=== PATIENT | male | born 1950 | race Caucasian/White ===

== ENCOUNTER → 2019-10-13 | Outpatient (CLI) | payer OTHER ==
[~2019-10-13] VITALS: Ht 177.8 cm; Wt 74.8 kg
[~2019-10-13] MED LIST: ALLOPURINOL 10100 M1 PO; ALLOPURINOL 10100 M3 PO; ASPIRIN325 PO; CARVEDILOL25 MG PO; CRESTOR20 MG PO; GEMFIBROZIL 60600 M1 PO; LISINOPRIL10 MG PO; NIASPAN 500 MG500 M1 PO; PANTOPRAZOLE SO40 M1 PO; PLAVIX 75 MG TA75 MG PO; SUPER B MAXI C0.4 MG PO
--- NOTE | 2019-10-15 16:07 | PATH ---
[facility] [place] [address] PATHOLOGY RPT PROCEDURE Name: AGUSTINAANDREW KINGA Room #: REG TERE Nava.#: [id number] Admission: 10/13/19 Date of : 46 Discharge: Report #: [id number] Path Case #: [id number] [facility] Accession Number: [id number] . 01 Material submitted: . PART A: esophagus - ESOPHAGEAL BIOPSY R/O BARRETTS PART B: colon - POLYP AT SIGMOID X4. Modifiers: sigmoid . 01 Clinical history: . Reflux, positive FOB A: R/O Pardo's . 02 Diagnosis: A. 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 - Negative for dysplasia. - Squamous mucosa showing mild active esophagitis. - GMS fungal special stain pending, to be reported as an addendum. . B. Polyp at sigmoid x4, endoscopic biopsy: - Tubular adenoma x2. - Negative for high grade dysplasia. . (IUV:mml; 10/14/2019) QLM 10/14/2019 1304 Local . 02 Addendum: . This addendum is issued subsequent to reviewing a properly-controlled GMS fungal special stain performed on block A1. It shows no definite fungal elements present. . (IUV:mml; 10/15/2019) . . Professional services performed by [facility] at [facility], [address] , [place] [address]. [facility] by [facility] at [address] [place] [address], [address], [place] [address]. [facility]/10/15/2019 Addendum Electronically Signed by Britni Keys MD, Pathologist . 02 Electronically signed: . Britni Keys MD, Pathologist NPI- [id number] . 01 Gross description: . [facility] [address] [place] [address] PATHOLOGY RPT PROCEDURE Name: ANDREW BERRIOS [facility] [id number] Admission: 10/13/19 Date of : 46 Discharge: Report #: [id number] Path Case #: [id number] A. The specimen is received in formalin, labeled "Andrew Berrios, esophageal biopsy, R/O Pardo's". Received are four segments of pale waite soft tissue ranging in size from 0.3 to 0.4 cm in maximum dimensions. The specimen is submitted entirely in cassette A1. . B. The specimen is received in formalin, labeled "Andrew Agustina, polyp at sigmoid x4". Received are four segments of pale waite soft tissue ranging in size from 0.3 to 1.0 cm in maximum dimensions. The specimen is submitted entirely in cassette B1. (CAA; 10/13/2019) QAC/QAC 10/13/2019 1844 Local . 02 Pathologist provided ICD-10: K22.70, D12.5 . 02 CPT . 630705, 740966, 154629 Specimen Comment: A courtesy copy of this report has been sent to [phone] Specimen Comment: [phone] Specimen Comment: Report sent to / DR DICKSON Specimen Comment: A duplicate report has been generated due to demographic updates. Performed at: [address] [facility], [place] [id number] MD Rodríguez Noble MD Phone: [phone] Performed at: [address] [id number] MD Britni Keys MD Phone: [phone]
== END | disposition home or self-care (01) ==
LOC: GI 07:52
DX: R19.5 Other fecal abnormalities (principal); D12.5 Benign neoplasm of sigmoid colon; K64.8 Other hemorrhoids; K22.70 Barrett's esophagus without dysplasia; K21.0 Gastro-esophageal reflux disease with esophagitis; K44.9 Diaphragmatic hernia without obstruction or gangrene; I10 Essential (primary) hypertension; E78.00 Pure hypercholesterolemia, unspecified; I25.2 Old myocardial infarction; I73.9 Peripheral vascular disease, unspecified; Z95.1 Presence of aortocoronary bypass graft; Z98.41 Cataract extraction status, right eye; Z98.42 Cataract extraction status, left eye; Z88.8 Allergy status to other drugs, medicaments and biological substances; Z79.899 Other long term (current) drug therapy
CPT/HCPCS: 62110; 62900

== ENCOUNTER → 2019-11-06 | Outpatient (CLI) | payer OTHER | LOC: SJCVCIMAG 13:49 | DX: I65.23 Occlusion and stenosis of bilateral carotid arteries (principal); I25.810 Atherosclerosis of coronary artery bypass graft(s) without angina pectoris; I77.9 Disorder of arteries and arterioles, unspecified; I25.5 Ischemic cardiomyopathy; E78.00 Pure hypercholesterolemia, unspecified; I71.4 Abdominal aortic aneurysm, without rupture; I10 Essential (primary) hypertension ==

== ENCOUNTER → 2019-12-10 | Outpatient (CLI) | payer OTHER | LOC: SJCVCIMAG 07:41 | DX: I08.8 Other rheumatic multiple valve diseases (principal); I11.9 Hypertensive heart disease without heart failure; I71.4 Abdominal aortic aneurysm, without rupture; I77.9 Disorder of arteries and arterioles, unspecified; I25.5 Ischemic cardiomyopathy; R06.00 Dyspnea, unspecified; Z95.1 Presence of aortocoronary bypass graft ==

== ENCOUNTER → 2019-12-18 | Outpatient (CLI) | payer OTHER ==
[2019-12-17 07:13] VITALS: BP 121/67
[2019-12-17 07:22] LABS: HEMATOCRIT 36.7 % (42.0-52.0); HEMOGLOBIN 12.3 gm/dL (14.0-18.0); MCH 35.9 pg (26.0-34.0); MCHC 33.5 g/dL (28.0-37.0); MCV 107.2 fL (80.0-100.0); RBC 3.42 mil/uL (4.50-6.00); RDW 13.7 % (10.5-14.5); WBC 5.9 thou/uL (4.0-11.0)
[2019-12-17 07:24] LABS: CREATININE 1.7 mg/dL (0.7-1.3); POTASSIUM 4.3 mmol/L (3.5-5.1)
--- NOTE | 2019-12-17 08:11 | EKG ---
[facility] [place] [address] [place] [address] ELECTROCARDIOGRAM REPORT Name: TRAN VILLAREAL KINGA Room #: [facility]Martin [facility] Center[facility] [id number] Admission: 12/17/19 Attend Phys: Kamari Holt MD, Discharge: Date of : 46 Report #: [id number] THIS REPORT FOR: cc: Gordon Cardenas,Gordon Quintana,Van Couch MD [facility] ~ THIS REPORT FOR: //name// [facility] Test Date: 2019-12-17 Test Time: 07:03:44 Pat Name: TRAN VILLAREAL Department: Room: Gender: M Wood Calker: RAFFY : 1950 Requested By: Kamari Holt Order Number: [id number] MD: Van Workman Measurements Intervals [place] Rate: 61 P: 37 MT: 240 QRS: -27 QRSD: 114 T: 119 QT: 466 QTc: 470 Interpretive Statements Sinus rhythm Multiple ventricular premature complexes Prolonged MT interval Borderline intraventricular conduction delay Nonspecific repol abnormality, diffuse leads Compared to ECG 08/10/2016 07:11:56 Ventricular premature complex(es) now present First degree AV block now present Electronically Signed On 12-17-2019 8:10:02 CDT by Van Workman [email or web address] <ELECTRONICALLY SIGNED> By: Van Workman MD, [facility] 12/17/19809 2 2 Van Wokrman MD, [facility] /EPI
[~2019-12-18] VITALS: Ht 175.3 cm; Wt 72.6 kg
[2019-12-18 08:39] VITALS: BP 142/83
[2019-12-18 09:14] LABS: CALCIUM 8.8 mg/dL (8.5-10.1); CREATININE 1.6 mg/dL (0.7-1.3); POTASSIUM 4.1 mmol/L (3.5-5.1)
--- NOTE | 2019-12-19 17:28 | CATHLAB ---
[facility] [place] [address] [place] [address] INVASIVE PROCEDURE REPORT Name: TRAN VILLAREAL Room #: REG TERE NavaYarelis#: [id number] Admission: 12/18/19 Attend Phys: Kamari Holt MD, Discharge: Date of : 46 Report #: [id number] THIS REPORT FOR: cc: Gordon Cardenas Steven F. DO Mancuso, Gerald M. MD [facility] ~ APPROVED REPORT Study performed: 12/18/2019 09:39:07 Patient Details Patient Status: Out-Patient Room #: The patient is a 69 year-old male Event Personnel Kamari Holt Pastry Artist, Robina Qiu RN RN, Bea Euceda RTR, Dennis Knutson Roberta Monitor Procedures Performed Art Access - R femoral artery* Left Heart Cath Coronaries, Bypass Grafts 3178350 LHCCORCABG 68370 Initial Mod Sed Same Phys/QHP Gr5y 283086 83299 Mod Sed Same Phys/QHP Ea 448902 Renal Bilateral Peripheral Angiography 3401653 CVRENALBIL Hemostasis w/ Mynx Indication Chest pain Procedure Narrative The Right Groin^ was infiltrated with 1% Lidocaine subcutaneous anesthesia. A PINNACLE 6FR Sheath #[id number] sheath was inserted into the RFA 6F^. Coronary angiography was performed using coronary diagnostic catheters. The right coronary system was accessed and visualized with a JR4 catheter. The left coronary system was accessed and visualized with a JL4 catheter. The left ventricle was accessed and visualized with a STR PIG catheter. Left ventriculogram was performed in 30 degree projection. There was no hematoma. Peoples to LAD Intraoperative Conscious Sedation Sedation start time: 1016 Case end Time: 1115 Fentanyl 100 mcg Versed 2 mg [facility] [address] [place] [address] INVASIVE PROCEDURE REPORT Name: DIONNATRAN LEE [id number] Admission: 12/18/19 Attend Phys: Kamari Holt, Discharge: Date of : 46 Report #: [id number] Fluoro Time: 15.13 minutes Dose: DAP 6662.00 cGycm2 Hemodynamics The aortic pressure is 126/47 mmHg with a mean of 73 mmHg. The left ventricular pressure is 146/2 mmHg with a mean of mmHg. The left ventricular end diastolic pressure is 16 mmHg. Conclusion #1. Normal left ventricular size systolic function mildly reduced inferior basilar hypokinesis EF 50% range #2 left main long moderately calcified possibly a previous stent giving rise to an occluded circumflex and subtotaled LAD which then is occludes after the septal slot shift supervisor #3 the PEOPLES is intact is tortuous mildly diseased filling in LAD which has diffuse disease slight progression but nothing occlusive. Some filling of the diagonal system through this is noted. 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 Previously placed stent in the mid distal RCA is widely patent. 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 #7 there appears to be injection of an occluded vein graft not clear as the distribution of that graft. Recommendations and plan: Continue aggressive risk factor modification. No indication for coronary intervention. Follow-up will be scheduled follow discharge protocol. <ELECTRONICALLY SIGNED> By: Kamari Holt MD, FACC 12/19/191725 25 25 Kamari Holt MD, FACC /INF
== END | disposition home or self-care (01) ==
LOC: CATH 12-17 06:32
PROVIDERS: Internal Medicine Cardiovascular Disease
DX: R07.9 Chest pain, unspecified (principal); I25.810 Atherosclerosis of coronary artery bypass graft(s) without angina pectoris; I70.1 Atherosclerosis of renal artery; I10 Essential (primary) hypertension; I42.9 Cardiomyopathy, unspecified; I25.2 Old myocardial infarction; E03.9 Hypothyroidism, unspecified; F41.9 Anxiety disorder, unspecified; I73.9 Peripheral vascular disease, unspecified; F17.210 Nicotine dependence, cigarettes, uncomplicated; Z95.1 Presence of aortocoronary bypass graft; Z98.890 Other specified postprocedural states; Z79.899 Other long term (current) drug therapy; Z98.41 Cataract extraction status, right eye; Z98.42 Cataract extraction status, left eye; Z82.49 Family history of ischemic heart disease and other diseases of the circulatory system

== ENCOUNTER → 2020-11-05 | Outpatient (CLI) | payer OTHER | LOC: SJCVC 09:43 | PROVIDERS: ATTEND Internal Medicine Cardiovascular Disease | DX: R94.31 Abnormal electrocardiogram [ECG] [EKG] (principal); I44.0 Atrioventricular block, first degree; I25.810 Atherosclerosis of coronary artery bypass graft(s) without angina pectoris; I65.23 Occlusion and stenosis of bilateral carotid arteries; I71.4 Abdominal aortic aneurysm, without rupture; I77.9 Disorder of arteries and arterioles, unspecified; E78.00 Pure hypercholesterolemia, unspecified; I25.5 Ischemic cardiomyopathy; I10 Essential (primary) hypertension; I73.9 Peripheral vascular disease, unspecified; F17.210 Nicotine dependence, cigarettes, uncomplicated; Z88.5 Allergy status to narcotic agent; Z95.1 Presence of aortocoronary bypass graft; Z72.89 Other problems related to lifestyle; Z79.899 Other long term (current) drug therapy ==

== ENCOUNTER → 2021-06-10 | Outpatient (CLI) | payer OTHER | LOC: SJCVCIMAG 07:42 | PROVIDERS: ATTEND Internal Medicine Cardiovascular Disease | DX: I44.0 Atrioventricular block, first degree (principal); I72.2 Aneurysm of renal artery; I25.10 Atherosclerotic heart disease of native coronary artery without angina pectoris; I74.5 Embolism and thrombosis of iliac artery; I25.5 Ischemic cardiomyopathy; E78.00 Pure hypercholesterolemia, unspecified; I65.23 Occlusion and stenosis of bilateral carotid arteries; I71.4 Abdominal aortic aneurysm, without rupture; I73.9 Peripheral vascular disease, unspecified; I10 Essential (primary) hypertension; E78.5 Hyperlipidemia, unspecified; F17.210 Nicotine dependence, cigarettes, uncomplicated; Z95.818 Presence of other cardiac implants and grafts; Z95.1 Presence of aortocoronary bypass graft; Z72.89 Other problems related to lifestyle; Z88.5 Allergy status to narcotic agent; Z79.899 Other long term (current) drug therapy ==